=== PATIENT | female | born 1965 | race Caucasian/White ===

== ENCOUNTER 2019-11-28 09:28 | Observation (INO) ==
[2019-11-28] MEDS ORDERED: Ondansetron 4 MG/2 ML VIAL IVP ONE (09:52)
[2019-11-28] MEDS ORDERED: 0.9 % Sodium Chloride 1,000 ML IVC ONE (09:52)
[2019-11-28 10:24] LABS: Basophils % 0.1 %; Eosinophils % 0.1 %; Hematocrit 45.2 % (35.3-44.9); Immature Granulocytes % 0.2 % (0-4); Lymphocytes # 0.6 K/mcL (0.6-4.6); Lymphocytes % 6.9 %; Mean Corpuscular HGB Conc 33.2 g/dL (31.6-35.5); Mean Corpuscular Hemoglobin 31.8 pg (28.0-33.3); Mean Platelet Volume 9.4 fL (9.4-12.4); Monocytes # 0.2 K/mcL (0.0-1.3); Monocytes % 2.7 %; Neutrophils # 7.4 K/mcL (1.6-8.9); Platelet Count 237 K/mcL (140-400); Red Blood Count 4.71 M/mcL (3.82-4.97); Red Cell Distribution Width 12.5 % (11.5-14.5); White Blood Count 8.2 K/mcL (4.3-11.1)
[2019-11-28 10:36] LABS: Bilirubin,Urine Moderate (Negative); Blood,Urine Negative (Negative); Clarity,Urine Clear (Clear); Color,Urine Dark Yellow (Yellow); Glucose,Urine (UA) Normal (Normal); Ketones,Urine 80 mg/dL (Negative); Leukocyte Esterase,Urine Negative (Negative); Nitrite,Urine Negative (Negative); Protein,Urine 30 mg/dL (Neg-Trace); Urobilinogen,Urine Normal (Normal)
[2019-11-28 10:39] LABS: Bacteria,Urine None Seen per hpf (None-Few); Hyaline Casts,Urine None Seen per lpf (None-Few); RBC,Urine 0-3 per hpf (0-3); Squamous Epithelial Cell,Urine Many per lpf (None-Few)
[2019-11-28 10:46] LABS: Alanine Aminotransferase 211 Units/L (7-52); Albumin 4.7 g/dL (3.5-5.7); Albumin/Globulin Ratio 1.7 (1.1-2.2); Alkaline Phosphatase 305 Units/L (34-104); Aspartate Amino Transferase 74 Units/L (13-39); BUN/Creatinine Ratio 31 (6-26); Bilirubin,Direct 0.1 mg/dL (0.0-0.2); Bilirubin,Indirect 0.6 mg/dL (0.0-1.0); Bilirubin,Total 0.7 mg/dL (0.3-1.0); Blood Urea Nitrogen 22 mg/dL (6-20); Calcium 9.5 mg/dL (8.6-10.3); Carbon Dioxide 18 mEq/L (23-29); Chloride 104 mEq/L (98-107); Globulin 2.8 g/dL (2.4-3.5); Glucose 133 mg/dL (70-105); Lipase 18 Units/L (11-82); Osmolality,Calculated 287 (280-300); Potassium 3.4 mEq/L (3.5-5.1); Sodium 136 mEq/L (136-145); Total Protein 7.5 g/dL (6.4-8.9); Troponin I < 0.03 ng/mL (< 0.04); eGFR For African Americans > 60 (> 60); eGFR For Non-African Americans > 60 (> 60)
[2019-11-28] MEDS ORDERED: Ondansetron 4 MG/2 ML VIAL IVP PRN (12:56)
[2019-11-28] MEDS ORDERED: Naloxone 0.4 MG/ML INJ IVP PRN (12:56)
[2019-11-28] MEDS ORDERED: ALPRAZolam 0.25 MG TABLET PO PRN (12:58)
[2019-11-28 13:54] LABS: Hepatitis B Surface Antigen Nonreactive (Nonreactive)
[2019-11-28 14:09] LABS: Estimated Average Glucose 105 mg/dl
[2019-11-28 14:22] LABS: Hepatitis B Core IgM Nonreactive (Nonreactive)
[2019-11-28 14:23] LABS: Hepatitis C Virus Antibody Nonreactive (Nonreactive)
[2019-11-28 14:24] LABS: Hepatitis A Antibody IgM Nonreactive (Nonreactive)
[2019-11-28] MEDS: Sodium Bicarbonate 75 MEQ in 0.45 % Sodium Chloride 1,000 ML IVC SCH (14:29)
[2019-11-28] MEDS: Pantoprazole 40 MG VIAL IVP SCH ×2 (14:30→16:30)
[2019-11-28] MEDS: Aspirin Enteric Coated 325 MG Tablet PO ONE ×2 (14:30→14:33)
[2019-11-28] MEDS: *HR* Heparin 5,000 UNIT/ML VIAL SQ SCH (17:31)
[2019-11-28] MEDS: *HR* HYDROcodone/Acet 5/325 mg TABLET PO PRN (18:27)
[2019-11-28 21:51] LABS: Adenovirus F 40/41 PCR Not detected (Not detect); Astrovirus PCR Not detected (Not detect); C.difficile Toxin A/B Gene PCR Not detected (Not detect); Campylobacter by PCR Not detected (Not detect); Cryptosporidium by PCR Not detected (Not detect); Cyclospora cayetanensis PCR Not detected (Not detect); E. coli O157 by PCR Not detected (Not detect); Entamoeba histolytica PCR Not detected (Not detect); Enteroaggregative E.coli(EAEC) Not detected (Not detect); Enteropathogenic E.coli(EPEC) Not detected (Not detect); Enterotoxigenic E.coli (ETEC) Not detected (Not detect); Giardia lamblia PCR Not detected (Not detect); Norovirus GI/GII PCR DETECTED (Not detect); Plesiomonas shigelloides PCR Not detected (Not detect); Rotavirus A PCR Not detected (Not detect); Salmonella PCR Not detected (Not detect); Sapovirus PCR Not detected (Not detect); Shig/EnteroinvasiveE coli EIEC Not detected (Not detect); Shigalike tox-prod E coli STEC Not detected (Not detect); Vibrio PCR Not detected (Not detect); Vibrio cholerae PCR Not detected (Not detect); Yersinia enterocolitica PCR Not detected (Not detect)
[2019-11-29] MEDS: *HR* HYDROcodone/Acet 5/325 mg TABLET PO PRN ×2 (00:23→08:35)
[2019-11-29] MEDS: Sodium Bicarbonate 75 MEQ in 0.45 % Sodium Chloride 1,000 ML IVC SCH (01:07)
[2019-11-29 01:49] LABS: Hematocrit 38.6 % (35.3-44.9); Hemoglobin 12.7 g/dL (11.5-15.4); Mean Corpuscular HGB Conc 32.9 g/dL (31.6-35.5); Mean Corpuscular Hemoglobin 31.7 pg (28.0-33.3); Mean Corpuscular Volume 96.3 fL (83.0-100.0); Mean Platelet Volume 9.4 fL (9.4-12.4); Platelet Count 180 K/mcL (140-400); Red Blood Count 4.01 M/mcL (3.82-4.97); Red Cell Distribution Width 12.3 % (11.5-14.5); White Blood Count 5.1 K/mcL (4.3-11.1)
[2019-11-29 01:57] LABS: Alanine Aminotransferase 142 Units/L (7-52); Albumin 3.9 g/dL (3.5-5.7); Albumin/Globulin Ratio 1.6 (1.1-2.2); Alkaline Phosphatase 216 Units/L (34-104); Aspartate Amino Transferase 40 Units/L (13-39); BUN/Creatinine Ratio 25 (6-26); Bilirubin,Direct 0.1 mg/dL (0.0-0.2); Bilirubin,Indirect 0.4 mg/dL (0.0-1.0); Bilirubin,Total 0.5 mg/dL (0.3-1.0); Blood Urea Nitrogen 15 mg/dL (6-20); Calcium 8.6 mg/dL (8.6-10.3); Carbon Dioxide 20 mEq/L (23-29); Chloride 107 mEq/L (98-107); Chol/HDL Ratio 3.4 (0-4.9); Globulin 2.4 g/dL (2.4-3.5); Glucose 91 mg/dL (70-105); Magnesium 1.9 mg/dL (1.6-2.6); Osmolality,Calculated 286 (280-300); Phosphorous 2.2 mg/dL (2.7-4.5); Potassium 2.9 mEq/L (3.5-5.1); Sodium 138 mEq/L (136-145); Total Protein 6.3 g/dL (6.4-8.9); eGFR For African Americans > 60 (> 60); eGFR For Non-African Americans > 60 (> 60)
[2019-11-29] MEDS: Pantoprazole 40 MG VIAL IVP SCH (05:40)
[2019-11-29] MEDS: *HR* Heparin 5,000 UNIT/ML VIAL SQ SCH (05:40)
[2019-11-29 06:49] VITALS: BP 119/84
[2019-11-29] MEDS ORDERED: Potassium Phosphate 44 MEQ in 0.9 % Sodium Chloride 250 ML IVPB ONE (07:46)
[2019-11-29] MEDS ORDERED: 0.9 % Sodium Chloride w KCl 20 MEQ/1,000 ML MLS IVC SCH (08:00)
[2019-11-29] MEDS ORDERED: Aspirin Enteric Coated 81 MG Tablet PO SCH (09:00)
[2019-11-29] MEDS ORDERED: PARoxetine 20 MG TABLET PO SCH (09:00)
[2019-11-29] MEDS ORDERED: PHENobarbitaL 32.4 MG TABLET PO SCH (09:00)
[2019-11-29 13:29] LABS: BUN/Creatinine Ratio 21 (6-26); Blood Urea Nitrogen 12 mg/dL (6-20); Calcium 8.5 mg/dL (8.6-10.3); Carbon Dioxide 20 mEq/L (23-29); Chloride 108 mEq/L (98-107); Glucose 69 mg/dL (70-105); Osmolality,Calculated 290 (280-300); Potassium 3.3 mEq/L (3.5-5.1); Sodium 141 mEq/L (136-145); eGFR For African Americans > 60 (> 60); eGFR For Non-African Americans > 60 (> 60)
== END 2019-11-29 14:59 | disposition home or self-care (01) ==
LOC: EMEROOARM 09:28 → 3BNU 09:28 → SUATTDRO 12:56 → 3BNU 13:25
PROVIDERS: ADMIT Family Medicine; ATTEND Internal Medicine